=== PATIENT | female | born 1970 | race Caucasian/White ===

== ENCOUNTER 2016-08-24 | Inpatient (IN) | payer OTHER ==
[2016-08-24] VITALS (7 sets, daily range): BP systolic 119–140; BP diastolic 68–74; PULSE 79–104; RESP 15–18; TEMP 97.1–98; O2SAT 95–98
[~2016-08-24] VITALS: Ht 162.6 cm; Wt 68.9 kg
[2016-08-24] MEDS ORDERED: NACL 0.9% 1,000 ML IV ONE (00:39)
[2016-08-24] MEDS ORDERED: KETOROLAC TROMETHAMINE 30 MG VIAL IVP ONE (00:45)
[2016-08-24 01:06] LABS: BILIRUBIN,URINE NEGATIVE (NEGATIVE); BLOOD, URINE 1+ (NEGATIVE); CLARITY/URINE CLEAR (CLEAR); COLOR,URINE YELLOW (YELLOW); GLUCOSE,URINE NEGATIVE (NEGATIVE); KETONES,URINE NEGATIVE (NEGATIVE); LEUKOCYTE ESTERASE ,URINE NEGATIVE (NEGATIVE); NITRITE, URINE NEGATIVE (NEGATIVE); PH,URINE 5.5 (5.0-8.0); PROTEIN URINE NEGATIVE (NEGATIVE); UROBILINOGEN,URINE 0.2 (0.2-1.0)
[2016-08-24 01:13] LABS: HEMATOCRIT 39.4 % (36-48); HEMOGLOBIN 13.5 g/dL (12.0-16.0); MEAN CORPUSCULAR HEMOGLOBIN 30 pg (27-31); MEAN CORPUSCULAR HGB CONC 34 % (32-36); MEAN CORPUSCULAR VOLUME 89 fL (79.0-98.0); PLATELET COUNT (AUTO) 331 K/uL (130-430); RED BLOOD CELL COUNT(AUTO) 4.43 MIL/uL (4.2-6.2); RED CELL DISTRIBUTION WIDTH 12.3 % (9.0-15.0); WHITE BLOOD COUNT (AUTO) 21.9 K/uL (4.8-10.8)
[2016-08-24 01:15] LABS: BACTERIA,URINE FEW /HPF (None Seen); RBC,URINE 0-3 /HPF (0-3); WBC,URINE 0-3 /HPF (0-3)
[2016-08-24 01:16] LABS: MUCUS,URINE 1+ /LPF (None Seen)
[2016-08-24 01:18] LABS: CREATININE 0.78 mg/dL (0.55-1.30); POTASSIUM 3.8 mmol/L (3.5-5.1)
[2016-08-24 01:23] LABS: ALBUMIN 3.6 g/dL (3.4-4.8); TOTAL BILIRUBIN 0.4 mg/dL (0.0-1.0); TOTAL PROTEIN, SERUM 7.6 g/dL (6.4-8.3)
[2016-08-24 01:34] LABS: BAND % (MANUAL) 4 % (0-6); BASOPHILS % (MANUAL) 0 % (0-2); EOSINOPHILS % (MANUAL) 3 % (0-7); LYMPHOCYTES % (MANUAL) 10 % (20-46); MONOCYTES % (MANUAL) 5 % (0-11)
[2016-08-24] MEDS ORDERED: PIPERACILLIN/TAZO 3.375 GM in NS 50 ML IV ONE (02:00)
[2016-08-24] MEDS ORDERED: MORPHINE 4 MG/ML INJ. SYRINGE IVP ONE (02:00)
[2016-08-24] MEDS ORDERED: FEXO180T94 PO (02:08)
[2016-08-24] MEDS ORDERED: [UNRECOGNIZED DRUG - CODE] PO (02:08)
[2016-08-24] MEDS ORDERED: birth control PO (02:08)
[2016-08-24] MEDS ORDERED: OXYM30MI NS (02:08)
[2016-08-24] MEDS ORDERED: PIPERACILLIN/TAZOBACTAM 3.375 GM/VIAL (ZOSYN) IV ONE (02:21)
[2016-08-24 04:32] LABS: INR 0.9 (0.8-1.2); PROTHROMBIN TIME 10.2 SECS (9.5-12.5)
[2016-08-24] MEDS ORDERED: ONDANSETRON HCL 4 MG/2 ML VIAL IVP PRN ×2 (08:00→08:45)
[2016-08-24] MEDS ORDERED: MORPHINE 2 MG/ML INJ. SYRINGE IVP PRN (08:00)
[2016-08-24] MEDS ORDERED: LR 1,000 ML IV SCH (08:36)
[2016-08-24] MEDS ORDERED: HYDROmorphone 2 MG/ML VIAL IVP PRN ×2 (08:45)
[2016-08-24] MEDS ORDERED: KETOROLAC TROMETHAMINE 30 MG VIAL IVP PRN (08:45)
[2016-08-24] MEDS ORDERED: MEPERIDINE HCL/PF 25 MG/ML DISP.SYRIN IVP PRN ×2 (08:45)
[2016-08-24] MEDS ORDERED: HYDROmorphone 1 MG INJ. 1 MG/ML AMPUL IVP PRN (08:45)
[2016-08-24] MEDS: cefTRIAXone 1 GM in D5W 50 ML IV SCH (09:00)
[2016-08-24] MEDS ORDERED: LIDOCAINE 1% 10 MG/ML, 20 ML MDV ONE (12:00)
[2016-08-24] MEDS ORDERED: ONDANSETRON HCL 4 MG/2 ML VIAL ONE (12:00)
[2016-08-24] MEDS ORDERED: SEVOFLURANE 15 MIN GAS INH ONE (12:00)
[2016-08-24] MEDS ORDERED: KETOROLAC TROMETHAMINE 30 MG VIAL ONE (12:00)
[2016-08-24] MEDS ORDERED: BUPIVACAINE /EPINEPHRINE/PF 0.5% 30 ML VIAL INJ ONE (12:00)
[2016-08-24] MEDS ORDERED: NS IRRIG SOLN 1000 ML IR ONE (12:00)
[2016-08-24] MEDS ORDERED: LR 1,000 ML IV.SOLN IV ONE (12:00)
[2016-08-24] MEDS ORDERED: PROPOFOL 200MG/ 20ML VIAL (DIPRIVAN) IV ONE (12:00)
[2016-08-24] MEDS ORDERED: ROPIVACAINE 40 MG/20 ML AMP EP ONE (12:00)
[2016-08-24] MEDS ORDERED: fentaNYL CITRATE/PF 100 MCG/2 ML AMP ONE (12:00)
[2016-08-24] MEDS ORDERED: ROCURONIUM BROMIDE 10 MG/ML (ZEMURON) ONE (12:00)
[2016-08-24] MEDS ORDERED: MIDAZOLAM HCL 5 MG/5 ML VIAL ONE (12:00)
[2016-08-25 00:55] VITALS: BP 122/76; PULSE 89; RESP 18; TEMP 97.8; O2SAT 98
[2016-08-25 04:41] VITALS: BP 118/68; PULSE 86; RESP 18; TEMP 98.2; O2SAT 98
[2016-08-25 07:44] LABS: BASOPHILS % (AUTO) 0.1 % (0.0-2.0); EOSINOPHILS % (AUTO) 0.3 % (0.0-4.0); HEMATOCRIT 31.3 % (36-48); HEMOGLOBIN 10.3 g/dL (12.0-16.0); LYMPHOCYTES # (AUTO) 3.2 K/uL (1.0-5.5); LYMPHOCYTES % (AUTO) 23.9 % (20.5-51.5); MEAN CORPUSCULAR HEMOGLOBIN 30 pg (27-31); MEAN CORPUSCULAR HGB CONC 33 % (32-36); MEAN CORPUSCULAR VOLUME 90 fL (79.0-98.0); MONOCYTES # (AUTO) 0.9 K/uL (0.0-1.0); MONOCYTES % (AUTO) 6.4 % (1.7-9.3); NEUTROPHILS # (AUTO) 9.4 K/uL (1.8-7.7); NEUTROPHILS % (AUTO) 69.3 % (40.0-70.0); PLATELET COUNT (AUTO) 268 K/uL (130-430); RED BLOOD CELL COUNT(AUTO) 3.47 MIL/uL (4.2-6.2); RED CELL DISTRIBUTION WIDTH 12.4 % (9.0-15.0)
[2016-08-25 07:48] LABS: WHITE BLOOD COUNT (AUTO) 13.5 K/uL (4.8-10.8)
[2016-08-25] MEDS ORDERED: PSEUDOEPHEDRINE HCL 30 MG TABLET PO PRN (08:00)
[2016-08-25 08:13] VITALS: BP 116/72; PULSE 87; RESP 18; TEMP 97.8; O2SAT 97
[2016-08-25] MEDS: cefTRIAXone 1 GM in D5W 50 ML IV SCH (08:25)
[2016-08-25] MEDS ORDERED: NON-FORMULARY MEDICATION (Fexofenadine Hcl (Allegra Allergy) 1 TAB) PO SCH (09:00)
[2016-08-25] MEDS ORDERED: OXYMETAZOLINE HCL NS SCH (09:00)
[2016-08-25] MEDS ORDERED: BIRTH CONTROL PO SCH (09:00)
[2016-08-25 13:07] VITALS: BP 119/63; PULSE 83; RESP 17; TEMP 96.8; O2SAT 95
[2016-08-25 13:46] VITALS: BP 119/63; PULSE 83; RESP 17; TEMP 96.8; O2SAT 95
== END 2016-08-25 13:35 | disposition home or self-care (01) | DRG 343 ==
LOC: SED → SMU 02:23
PROVIDERS: ADMIT Specialist; ATTEND Specialist
PROC: 3E0T3CZ (ICD-10-PCS; 2016-08-24)
PROC: 0DTJ4ZZ Resection of Appendix, Percutaneous Endoscopic Approach (ICD-10-PCS; principal; 2016-08-24 08:00)
DX: K35.80 Unspecified acute appendicitis (principal)
CPT/HCPCS: 36415; 80053; 81000-TC; 83605; 84702-TC; 85007; 85025; 85027; 85610-TC; 85730-TC; 87081; 88304; 96361; 96365; 96375; 99285; C1727; J0696; J1885; J2001; J2250; J2270; J2405; J2543; J2704; J2795; J3010; J3490; J7030; J7040; J7060; J7120

== ENCOUNTER 2020-09-26 06:00 | Day surgery (SDC) | payer OTHER, SELFPAY ==
[2020-09-24 11:40] LABS: BASOPHILS % (AUTO) 0.6 % (0.0-2.0); EOSINOPHILS # (AUTO) 0.1 K/uL (0.0-0.4); EOSINOPHILS % (AUTO) 1.1 % (0.0-4.0); HEMATOCRIT 37.6 % (36-48); HEMOGLOBIN 12.8 g/dL (12.0-16.0); LYMPHOCYTES # (AUTO) 1.6 K/uL (1.0-5.5); LYMPHOCYTES % (AUTO) 19.5 % (20.5-51.5); MEAN CORPUSCULAR HEMOGLOBIN 31 pg (27-31); MEAN CORPUSCULAR HGB CONC 34 % (32-36); MEAN CORPUSCULAR VOLUME 91 fL (79.0-98.0); MONOCYTES # (AUTO) 0.7 K/uL (0.0-1.0); NEUTROPHILS % (AUTO) 70.8 % (40.0-70.0); PLATELET COUNT (AUTO) 318 K/uL (130-430); RED BLOOD CELL COUNT(AUTO) 4.12 MIL/uL (4.2-6.2); RED CELL DISTRIBUTION WIDTH 12.8 % (9.0-15.0); WHITE BLOOD COUNT (AUTO) 8.4 K/uL (4.8-10.8)
[2020-09-24 11:42] LABS: BILIRUBIN,URINE NEGATIVE (NEGATIVE); CLARITY/URINE CLEAR (CLEAR); GLUCOSE,URINE NEGATIVE (NEGATIVE); KETONES,URINE NEGATIVE (NEGATIVE); LEUKOCYTE ESTERASE ,URINE NEGATIVE (NEGATIVE); NITRITE, URINE NEGATIVE (NEGATIVE); PROTEIN URINE NEGATIVE (NEGATIVE); UROBILINOGEN,URINE 0.2 (0.2-1.0)
[2020-09-24 11:52] LABS: BLOOD, URINE TRACE (NEGATIVE); COLOR,URINE STRAW (YELLOW)
[2020-09-24 13:13] LABS: RBC,URINE 0-3 /HPF (0-3); WBC,URINE 0-3 /HPF (0-3)
[2020-09-24 13:14] LABS: BACTERIA,URINE RARE /HPF (None Seen)
[~2020-09-26] VITALS: Ht 162.6 cm; Wt 61.7 kg
[~2020-09-26 06:00] MED LIST: FEXO180T94 PO; OXYM30MI NS; PSEU30TA36 PO; birth control PO
[2020-09-26] MEDS ORDERED: METOCLOPRAMIDE HCL 10 MG/2 ML VIAL IVP ONE (08:20)
[2020-09-26] MEDS ORDERED: BUPIVACAINE /EPINEPHRINE/PF 0.5% 30 ML VIAL INJ ONE (08:20)
[2020-09-26] MEDS ORDERED: ROPIVACAINE 40 MG/20 ML AMP EP ONE (08:20)
[2020-09-26] MEDS ORDERED: PROPOFOL 200MG/ 20ML VIAL (DIPRIVAN) IV ONE (08:20)
[2020-09-26] MEDS ORDERED: NS 1000 ML IV.SOLN IV ONE (08:20)
[2020-09-26] MEDS ORDERED: fentaNYL CITRATE 250 MCG/5 ML AMP IV ONE (08:20)
[2020-09-26] MEDS ORDERED: HYDROmorphone 2 MG/ML VIAL IVP ONE (08:20)
[2020-09-26] MEDS ORDERED: NS IRRIG SOLN 1000 ML IR ONE (08:20)
[2020-09-26] MEDS ORDERED: DEXAMETHASONE SOD PHOSPHATE 4 MG/ML VIAL IVP ONE (08:20)
[2020-09-26] MEDS ORDERED: WATER FOR IRRIGATION,STERILE 1,000 ML IRRIG.SOLN IR ONE (08:20)
[2020-09-26] MEDS ORDERED: LR 1,000 ML IV.SOLN IV ONE (08:20)
[2020-09-26] MEDS ORDERED: SUGAMMADEX SODIUM 200 MG/2 ML VIAL IV ONE (08:20)
[2020-09-26] MEDS ORDERED: ONDANSETRON HCL 4 MG/2 ML VIAL IVP ONE (08:20)
[2020-09-26] MEDS ORDERED: ROCURONIUM BROMIDE 10 MG/ML (ZEMURON) IV ONE (08:20)
[2020-09-26] MEDS ORDERED: DESFLURANE 15 MIN GAS INH ONE (08:20)
[2020-09-26] MEDS ORDERED: HYDROmorphone 1 MG/ML INJ. CARTRIDGE IVP PRN ×2 (08:45)
[2020-09-26] MEDS ORDERED: ONDANSETRON HCL 4 MG/2 ML VIAL IVP PRN ×2 (08:45→10:00)
[2020-09-26] MEDS ORDERED: HYDROcodone/ACETAMIN 5-325 MG TAB (NORCO/ VICODIN) PO PRN (10:00)
[2020-09-26] MEDS ORDERED: OXYCODONE/ACETAMINOPHEN 5-325 TABLET PO PRN ×2 (10:00)
[2020-09-26 11:25] VITALS: BP_SYST 138
[2020-09-26] MEDS ORDERED: SIMETHICONE 80 MG TAB.CHEW PO SCH (13:00)
== END 2020-09-26 14:10 | disposition home or self-care (01) ==
LOC: SMU 06:00 → SDS 06:00
PROVIDERS: ATTEND Specialist
DX: N92.0 Excessive and frequent menstruation with regular cycle (principal); D25.2 Subserosal leiomyoma of uterus; N85.9 Noninflammatory disorder of uterus, unspecified; N91.2 Amenorrhea, unspecified; R10.2 Pelvic and perineal pain; Z90.89 Acquired absence of other organs; Z79.899 Other long term (current) drug therapy
CPT/HCPCS: 36415; 57000; 58545; 64488; 81000; 84703; 85025; 87086; 87426; 88305; C9399; J1100; J1170; J2405; J2704; J2765; J2795; J3010; J3490; J7030; J7120; S2900; E0190

== ENCOUNTER 2021-09-20 07:36 | Emergency (ER) | payer OTHER ==
[~2021-09-20] VITALS: Ht 162.6 cm; Wt 65.8 kg
[2021-09-20 08:00] VITALS: BP_SYST 144
--- NOTE | 2021-09-20 08:00 | NUR ---
Patient to ER bed 4 for evaluation. Side rails up. Report given to Johnathon SAINI.
--- NOTE | 2021-09-20 08:00 | NUR ---
RECEIVED PT IN BED #3 FROM HOME WITH CC OF L ELBOW PAIN. PT IS STABLE, NAD, VSS, AAOx3, HAD SOME ELBOW PAIN AFTER GARDENING YESTERDAY. PT TO BE FURTHER ASSESSED BY ED MD FOR PLAN OF CARE WITH DISPOSITION.
--- NOTE | 2021-09-20 08:00 | NUR ---
ED MD MARTINS AT BEDSIDE
[2021-09-20 08:21] LABS: BASOPHILS # (AUTO) 0.1 K/uL (0.0-0.2); BASOPHILS % (AUTO) 0.6 % (0.0-2.0); EOSINOPHILS # (AUTO) 0.1 K/uL (0.0-0.4); EOSINOPHILS % (AUTO) 1.1 % (0.0-4.0); HEMATOCRIT 37.8 % (36-48); HEMOGLOBIN 12.9 g/dL (12.0-16.0); LYMPHOCYTES # (AUTO) 1.7 K/uL (1.0-5.5); LYMPHOCYTES % (AUTO) 14.1 % (20.5-51.5); MEAN CORPUSCULAR HEMOGLOBIN 31 pg (27-31); MEAN CORPUSCULAR HGB CONC 34 % (32-36); MEAN CORPUSCULAR VOLUME 90 fL (79.0-98.0); MONOCYTES # (AUTO) 0.8 K/uL (0.0-1.0); MONOCYTES % (AUTO) 6.6 % (1.7-9.3); NEUTROPHILS # (AUTO) 9.1 K/uL (1.8-7.7); NEUTROPHILS % (AUTO) 77.6 % (40.0-70.0); PLATELET COUNT (AUTO) 314 K/uL (130-430); RED BLOOD CELL COUNT(AUTO) 4.18 MIL/uL (4.2-6.2); WHITE BLOOD COUNT (AUTO) 11.7 K/uL (4.8-10.8)
[2021-09-20 09:00] LABS: CALCIUM 8.4 mg/dL (8.4-11.0); CREATININE 0.73 mg/dL (0.55-1.30); POTASSIUM 4.5 mmol/L (3.5-5.1)
[2021-09-20 09:02] LABS: TOTAL BILIRUBIN 0.2 mg/dL (0.0-1.0)
[2021-09-20 09:03] LABS: ALBUMIN 3.2 g/dL (3.4-4.8); URIC ACID 4.8 mg/dL (2.4-7.0)
[2021-09-20 09:09] LABS: C-REACTIVE PROTEIN QUANT 2.2 mg/dL (0-0.5)
[2021-09-20] MEDS ORDERED: IBUP-1969 PO (09:31)
[2021-09-20] MEDS ORDERED: CLIN-142 PO (09:31)
--- NOTE | 2021-09-20 10:00 | NUR ---
Patient given written and verbal discharge instructions and verbalizes understanding. ER MD discussed with patient the results and treatment provided. Patient in stable condition. ID arm band removed. Rx of given. Patient educated on pain management and to follow up with PMD. Pain Scale 8/10. Opportunity for questions provided and answered. Medication side effect fact sheet provided.
== END 2021-09-20 10:00 | disposition home or self-care (01) ==
LOC: SED 07:36
DX: M70.22 Olecranon bursitis, left elbow (principal); M25.522 Pain in left elbow
CPT/HCPCS: 36415; 80053; 84550; 85025; 86140; 99284

== ENCOUNTER 2023-06-01 01:12 | Emergency (ER) | payer OTHER ==
[~2023-06-01] VITALS: Ht 162.6 cm; Wt 68.0 kg
[~2023-06-01 01:12] MED LIST changes: +CLIN-142 PO; +IBUP-1969 PO
[2023-06-01 01:18] VITALS: BP_SYST 161; PULSE 102; RESP 20; TEMP 97.8; O2SAT 100
[2023-06-01] MEDS ORDERED: IPRATROPIUM/ALBUTEROL SULFATE 3 ML AMPUL.NEB (DUONEB) ONE (01:24)
[2023-06-01] MEDS: IPRATROPIUM/ALBUTEROL SULFATE 3 ML AMPUL.NEB (DUONEB) INH ONE (01:25)
[2023-06-01] MEDS ORDERED: IBUPROFEN 600 MG TABLET PO ONE (02:00)
[2023-06-01] MEDS: NAPROXEN 250 MG TABLET PO SCH (02:45)
[2023-06-01] MEDS ORDERED: NAPROXEN 250 MG TABLET ONE (03:06)
[2023-06-01 03:15] VITALS: BP_SYST 151; PULSE 74; RESP 18; TEMP 98.4; O2SAT 97
== END 2023-06-01 03:15 | disposition home or self-care (01) ==
LOC: SED 01:12
DX: J45.909 Unspecified asthma, uncomplicated (principal); R06.02 Shortness of breath; R00.0 Tachycardia, unspecified; Z79.899 Other long term (current) drug therapy
CPT/HCPCS: 94640; 99283